=== PATIENT | female | born 1955 | race Caucasian/White ===

== ENCOUNTER 2016-08-10 13:28 | Day surgery (SDC) | payer OTHER ==
[~2016-08-10] VITALS: Ht 165.1 cm; Wt 63.0 kg
[~2016-08-10 13:28] MED LIST: 0.9% Sodium Chloride 1,000 ML IV PRN; BACI1CAP6 PO; MULT-666 PO; Sodium Chloride LOK Flush 10 mL Syringe IV PRN; fentaNYL-PF 50 mCg/mL 2 mL Inj IVPUSH PRN
[2016-08-10 15:27] VITALS: BP 113/70; PULSE 69; RESP 14; O2SAT 98
--- NOTE | 2016-08-10 16:41 | PCM.ENDPOS ---
Procedure Date of Service: Aug 10, 2016 Physician Robinson Crooks MD Indication for Procedure Bright red blood per rectum Post Procedure Dx & Findings: Hemorrhoids and friable rectal mucosa Procedure Procedure: Flexible sigmoidoscopy for history of anal cancer and bright red red blood per rectum. Bleeding has stopped. After on unremarkable rectal examination Olympus video colonoscope was inserted patient's anal canal and was advanced at 30 cm. This is when the patient started feeling uncomfortable. The visualized mucosa show shiny mucosa with normal healthy-appearing vasculature. Retroflexion was done which showed hemorrhoids. Anal canal was inspected carefully on the way out and I was up to see the squamous cell component protruding into the anal canal. Some hemorrhoids are noted. In the rectum, retroflexion, some mucosal trauma. There was some blood noted but it stopped on its own. Impression Hemorrhoids Evidence of surgery Recommendation Follow up in GI clinic in 2 months. Presedation Assessment Risks and Benefits Informed consent was obtained from the patient after all risks and benefits including but not limited to drug reaction, infection, pain, bleeding, perforation, as well as alternatives were discussed. Patient monitoring Continuous pulse oximetry, cardiac monitoring, blood pressure monitoring, IV access, and oxygen at 2L per nasal cannula. Complications There were no periprocedural complications identified. Post Procedure Plan Post Procedure Recommendations The following preliminary plan is subject to change depending on the findings of the histopathologly of the tissues sent. Robinson Crooks MD Aug 10, 2016 16:41
[2016-08-10 16:59] VITALS: BP 125/57; PULSE 71; O2SAT 99
== END 2016-08-10 23:59 | disposition home or self-care (01) ==
LOC: END 13:28
PROVIDERS: ATTEND Internal Medicine
DX: K62.5 Hemorrhage of anus and rectum (principal); K64.8 Other hemorrhoids; Z79.899 Other long term (current) drug therapy
CPT/HCPCS: 45330; J7030